=== PATIENT | male | born 1960 | race Caucasian/White ===

== ENCOUNTER 2019-01-14 23:07 | Emergency (ER) | payer OTHER ==
[~2019-01-14] VITALS: Ht 185.4 cm; Wt 117.0 kg
[~2019-01-14 23:07] MED LIST: ALBUTEROL0.09 MG/AC INH; ANTIVERT/2525 MG PO; CEPHALEXIN500 M1 PO; CLARITIN10 MG PO; ENTERIC ASPIRI325 MG PO; HYDR12.5C PO; HYDREA500 MG PO; IBUPROFEN 30 M800 MG PO; KEFLEX500 M1 PO; KEFLEX500 MG PO; LISINOPRIL30 MG PO; MEDROL DOSEPAK4 MG PO; MOTRIN800 MG PO; MULTI VITAMINS1 TAB PO; PEN-VEE K500 MG PO; PIROXICAN10 MG PO; TRAMADOL HCL50 MG PO; VIBRAMYCIN100 MG PO; VICODIN 5/500 505 MG PO; VICODIN 500 MG-1 TAB PO; VITAMIN D5000 IU PO; ZESTRIL,PRINIVI40 MG PO
[2019-01-14 23:09] VITALS: BP 122/48
[2019-01-14] MEDS ORDERED: ASPIRIN CHEWABL81 MG PO (23:26)
[2019-01-14] MEDS ORDERED: VITAMIN D400 I1 PO (23:27)
[2019-01-15] MEDS ORDERED: TESSALON PERLE100 M1 PO (00:04)
== END 2019-01-15 00:05 | disposition home or self-care (01) ==
LOC: ED 23:07
DX: R05 Cough (principal); Z79.899 Other long term (current) drug therapy; Z79.82 Long term (current) use of aspirin; Z88.4 Allergy status to anesthetic agent

== ENCOUNTER 2019-01-17 06:49 | Emergency (ER) | payer OTHER ==
[~2019-01-17] VITALS: Ht 185.4 cm; Wt 117.0 kg
[2019-01-17 06:49] VITALS: BP 111/36
[~2019-01-17 06:49] MED LIST changes: +ASPIRIN CHEWABL81 MG PO; +TESSALON PERLE100 M1 PO; +VITAMIN D400 I1 PO
[2019-01-17] MEDS ORDERED: MEDROL DOSEPAK4 MG PO (08:58)
[2019-01-17] MEDS ORDERED: BENADRYL ALLERG25 M5 PO (09:08)
== END 2019-01-17 09:06 | disposition home or self-care (01) ==
LOC: ED 06:49
DX: R05 Cough (principal); J02.9 Acute pharyngitis, unspecified; Z88.4 Allergy status to anesthetic agent; Z79.899 Other long term (current) drug therapy; Z79.82 Long term (current) use of aspirin

== ENCOUNTER 2024-06-02 07:41 | Emergency (ER) | payer OTHER ==
[~2024-06-02] VITALS: Wt 117.0 kg
[~2024-06-02 07:41] MED LIST changes: +BENADRYL ALLERG25 M5 PO
[2024-06-02 08:00] VITALS: BP 145/72
[2024-06-02] MEDS ORDERED: ROBITUSSIN DM 105 ML PO (09:25)
[2024-06-02] MEDS ORDERED: AVPAK AZITHROM250 M1 PO (09:25)
== END 2024-06-02 09:56 | disposition home or self-care (01) ==
LOC: ED 07:41
DX: J40 Bronchitis, not specified as acute or chronic (principal); Z20.822 Contact with and (suspected) exposure to COVID-19; Z88.4 Allergy status to anesthetic agent; Z79.899 Other long term (current) drug therapy; Z79.82 Long term (current) use of aspirin; Z98.890 Other specified postprocedural states

== ENCOUNTER 2024-06-05 18:54 | Emergency (ER) | payer OTHER ==
[~2024-06-05] VITALS: Ht 185.4 cm; Wt 117.0 kg
[~2024-06-05 18:54] MED LIST changes: +AVPAK AZITHROM250 M1 PO; +ROBITUSSIN DM 105 ML PO
[2024-06-05 19:10] VITALS: BP 134/73
[2024-06-05 20:15] LABS: BASO % 0.3 % (0.0-1.0); EOS # 0.2 10*3/uL (0.0-0.4); EOS % 2.5 % (1.0-4.0); HEMATOCRIT 38.8 % (42.0-52.0); MEAN CELL VOLUME 105.1 fl (80.0-94.0); MEAN CORPUSCULAR HGB 36.3 pg (27.0-31.0); MEAN CORPUSCULAR HGB CONC 34.5 g/dl (33.0-37.0); MEAN PLATELET VOLUME 8.9 fl (9.6-12.3); MONO # 0.6 10*3/uL (0.1-1.0); MONO % 9.4 % (3.0-9.0); NEUT # 3.9 10*3/uL (2.3-7.9); NEUT % 66.2 % (47.0-73.0); PLATELET COUNT AUTOMATED 305 10*3/uL (130-400); RED BLOOD COUNT 3.69 10*6/uL (4.50-5.90); RED CELL DISTRI WIDTH 12.7 % (0-14.5); WHITE BLOOD COUNT 5.9 10*3/uL (4.8-10.8)
[2024-06-05] MEDS ORDERED: Albuterol Sulf/Ipratropium 3 ML VIAL NEB ONE (20:30)
[2024-06-05 20:34] LABS: BUN 13 mg/dl (9-23); CHLORIDE 100 mmol/L (98-107); POTASSIUM 3.4 mmol/L (3.4-5.1)
[2024-06-05] MEDS ORDERED: Codeine Phosphate/Guaifenesi 10 ML UDC PO ONE (21:50)
[2024-06-05] MEDS ORDERED: Doxycycline Hyclate 100 MG CAP PO ONE (22:50)
[2024-06-05] MEDS ORDERED: CODEINE-GUAIFE120 M1 PO (22:51)
[2024-06-05] MEDS ORDERED: VENT7GM INH (22:51)
[2024-06-05] MEDS ORDERED: MEDROL DOSEPAK4 MG PO (22:51)
[2024-06-05] MEDS ORDERED: VIBRAMYCIN100 MG PO (22:51)
== END 2024-06-05 22:59 | disposition home or self-care (01) ==
LOC: ED 18:54
PROVIDERS: Internal Medicine
DX: J18.9 Pneumonia, unspecified organism (principal); Z20.822 Contact with and (suspected) exposure to COVID-19; D53.9 Nutritional anemia, unspecified; I10 Essential (primary) hypertension; Z79.899 Other long term (current) drug therapy; Z88.4 Allergy status to anesthetic agent; Z98.890 Other specified postprocedural states